=== PATIENT | male | born 1960 | race Caucasian/White ===

== ENCOUNTER → 2020-04-08 | Outpatient (CLI) | payer OTHER, BC ==
--- NOTE | 2020-04-08 15:13 | RAD ---
Examination: 2 views of the right tibia and fibula HISTORY: History of laceration COMPARISON: None available. Findings/ impression: The alignment of the tibia and fibula grossly appears unremarkable. Small sclerotic density identified in the distal femur could be enchondroma or a sclerotic lesion. If there is pain consider MRI for further evaluation. Small soft tissue laceration identified anterior to the mid tibia. Electronically signed by: Bimal Guillen MD (04/08/2020 3:10 PM) [id number]
== END ==
LOC: DXRAD 13:07
PROVIDERS: ATTEND Physician Assistant
DX: S81.811A Laceration without foreign body, right lower leg, initial encounter (principal); M79.89 Other specified soft tissue disorders; X58.XXXA Exposure to other specified factors, initial encounter; Y93.89 Activity, other specified; Y92.89 Other specified places as the place of occurrence of the external cause; Y99.8 Other external cause status
CPT/HCPCS: 73590

== ENCOUNTER → 2020-07-18 | Outpatient (CLI) | payer OTHER ==
--- NOTE | 2020-07-18 14:27 | RAD ---
2 views the right tib-fib without comparison for right perez pain. FINDINGS: There is no acute osseous abnormality. No radiopaque foreign bodies. Visualized joints and soft tissues are grossly unremarkable. IMPRESSION: 1. No acute osseous abnormality. Electronically signed by: Renard Loaiza MD (07/18/2020 2:25 PM) [id number]
== END ==
LOC: RAD 09:18
PROVIDERS: ATTEND Nurse Practitioner Family
DX: M79.661 Pain in right lower leg (principal)
CPT/HCPCS: 73590